=== PATIENT | female | born 1985 | race Caucasian/White ===

== ENCOUNTER 2023-11-08 11:27 | Emergency (ER) | payer OTHER, SELFPAY ==
[2023-11-08] VITALS (8 sets, daily range): BP systolic 123–157; BP diastolic 63–112
[2023-11-08] MEDS: THIAMINE INJECTION 100 MG IV (12:53)
[2023-11-08] MEDS: PROTONIX IV 40 MG IV (12:53)
[2023-11-08] MEDS: ATIVAN 1 MG IV (12:53)
[2023-11-08] MEDS: NSS 1000 IV (12:55)
[2023-11-08 13:09] LABS: % Basophils 0.5 % (0-2); % Eosinophils 0.3 % (0-6); % Immature Granulocytes 0.2 % (0-0.5); % Monocytes 6.5 % (1.7-9.3); % Neutrophils 84.5 % (42.2-75.2); Absolute Lymphocytes 0.5 10^3/uL (1.2-3.4); Absolute Monocytes 0.4 10^3/uL (0.1-0.6); Absolute Neutrophils 5.2 10^3/uL (1.4-6.5); Hematocrit 30.5 % (37.0-47.0); Hemoglobin 8.6 g/dL (12.0-16.0); Mean Corp Hgb Conc. 28.2 g/dL (33.0-37.0); Mean Corpuscular Hgb 16.3 pg (27.0-31.0); Mean Corpuscular Volume 57.8 fL (81.0-99.0); Nucleated Red Blood Cells % 0 %; Platelet Count 439 10^3/uL (130-400); Red Blood Cell Count 5.28 10^6/uL (4.20-5.40); Red Cell Dist. Width 20.8 % (11.5-14.5); White Blood Cell Count 6.1 10^3/uL (4.8-10.8)
[2023-11-08 13:18] LABS: PT 14.1 Sec (11.4-14.6)
[2023-11-08 13:19] LABS: APTT 27.1 Sec (23.4-35.0)
[2023-11-08 13:30] LABS: HCG, Serum Qualitative Screen Negative
[2023-11-08 13:32] LABS: ALT (SGPT) 18 U/L (0-35); AST (SGOT) 31 U/L (14-36); Albumin 4.3 g/dl (3.5-5.0); Alkaline Phosphatase 157 U/L (38-126); Blood Urea Nitrogen 7 mg/dl (7-17); Calcium 8.9 mg/dl (8.4-10.2); Carbon Dioxide 22 mmol/L (22-30); Chloride 102 mmol/L (98-107); Glucose 100 mg/dl (70-99); Lipase 34 U/L (23-300); Potassium 3.8 mmol/L (3.5-5.1); Sodium 131 mmol/L (135-145); Total Bilirubin 2.4 mg/dl (0.2-1.3); Total Protein 7.5 g/dl (6.3-8.2); eGFR > 60.00
[2023-11-08 13:57] LABS: Anisocytosis 1+; Hypochromasia 1+; Microcytosis 1+; Normal RBC Morphology No
[2023-11-08 13:58] LABS: Ovalocytes 1+; Stomatocytes 1+; Target Cells 1+; Tear Drop Red Blood Cells 1+
--- NOTE | 2023-11-08 14:40 | ED.GENMED ---
History of Present Illness
General
Chief Complaint: Anxiety
Source: patient
Exam Limitations: none
Time Seen by Provider: 11/08/23 11:44
Nursing documentation reviewed up to this point in time: agreed with
Travel History
Have you had any contact with someone who has COVID-19?: No
Do you have any symptoms of coronavirus? Fever > 100 degrees, chills, cough, shortness of breath, sore throat, loss of taste or smell, muscle aches, or headache?: No
History of Present Illness
History of Present Illness:
pt i s a 38 y/o F with h/o gastric bypass, bleeding PUD, anemia, alcohol use, anxieyt, bipolar
says initially that she has been drining alcohol (whiskey) for 2 days, binge drinking because she is depressed about the anniversary of her mother's coming up
today she woke up not feeling well, was fatigued, shaky, anxious, lightheadedness
she took a sip of alcohol this morning because she was worried maybe arnaldo twould help
prior to a few days ago, she denies using alcohol this frequently and not daily
pt has had chronic anemia, but hasn't noticed any black stool. she is noncompliant with her iron. sh also was noncompliant with her omeprazole which she takes because of her peptic ulcer disease. Patient says she really has not been Taking care of
herself recently. She lives with family members and they are not aware of her alcohol problem.
She denies vomiting, fever, chills, chest pain, shortness of breath, diarrhea or black stool. Ultimately after
Speaking with her several times she ended up admitting that she has been binge drinking for at least a week, this very well may be even longer. Patient says she does not want to drink again.
Past History
Past History
ED Past Medical History: Asthma, COPD, Psychiatric (Anxiety, bipolar, depression), Other (Peptic ulcer) and Other (Anemia)
ED Past Surgical History: Other (Gastric bypass)
Social History
Tobacco: Smoker
Alcohol: Binge drinker
Drug: None
Personal: Single
Living: with family
Review of Systems
Review of Systems
Allergies reviewed?: Yes
All Other Systems: Not applicable
Phy Exam
Physical Exam
Physical Exam:
GENERAL: Alert mildly anxious
EYE: pupils equal and reactive
NECK: Supple
ENT: o/p clr, mmm.
CARDIAC: tachycardia, no edema
LUNGS: Clear breath sounds bilaterally, no acute respiratory distress, no wheezes/rales/rhonchi
ABDOMEN: Soft, without focal tenderness, no r/g, no cvat, normal bowel sounds
rectal: heme neg light brown stool
NEUROLOGICAL: Alert and oriented, no focal neuro deficits,
SKIN: Warm and dry, skin intact.
MUSCULOSKELETAL: No edema, well perfused. neg deborah's sign
PSYCH: anxious, no SI, no hallucinations
Course
Orders/Labs/Results
Orders:
Orders
11/08/23 11:34
Electrocardiogram (*1) Urgent
Reason for Study: Chest Pain
EKG- Treatment ONCE
11/08/23 12:09
IV Insert/Care/Rem.- Treatment PRN
0.9% Sodium Chloride 1000 ml [Nss] 1,000 ml IV BOLUS
Lorazepam [Ativan] 1 mg IV NOW STA
Pantoprazole [Protonix IV] 40 mg IV NOW STA
Thiamine Injection 100 mg IV NOW STA
11/08/23 12:10
Test Result ONCE
11/08/23 12:51
Complete Blood Count/With Diff Urgent
Comprehensive Metabolic Panel Urgent
HCG, Serum Qualitative Screen Urgent
Lipase Urgent
PTT Urgent
Prothrombin Time Urgent
Abnormal Lab Results
11/08/23
12:51
Hgb 8.6 L g/dL
(12.0-16.0)
Hct 30.5 L %
(37.0-47.0)
MCV 57.8 L fL
(81.0-99.0)
MCH 16.3 L pg
(27.0-31.0)
MCHC 28.2 L g/dL
(33.0-37.0)
RDW 20.8 H %
(11.5-14.5)
Plt Count 439 H 10^3/uL
(130-400)
Absolute Lymphs (auto) 0.5 L 10^3/uL
(1.2-3.4)
Neutrophils % 84.5 H %
(42.2-75.2)
Lymphocytes % 8.0 L %
(20.5-51.1)
Sodium 131 L mmol/L
(135-145)
Glucose 100 H mg/dl
(70-99)
Total Bilirubin 2.4 H mg/dl
(0.2-1.3)
Alkaline Phosphatase 157 H U/L
(38-126)
11/08/23 12:51
11/08/23 12:51
Vital Signs
Initial and Last Documented VS:
Initial Vital Signs
Temp Pulse Resp BP Pulse Ox
97.5 F 110 18 157/112 99
11/08/23 11:30 11/08/23 11:30 11/08/23 11:30 11/08/23 11:30 11/08/23 11:30
Last Documented Vital Signs
Temp Pulse Resp BP Pulse Ox
97.5 F 83 15 149/92 99
11/08/23 11:30 11/08/23 13:01 11/08/23 13:01 11/08/23 13:00 11/08/23 13:01
MDM/Problems Addressed
Differential Diagnosis Includes:
Anxiety, alcohol withdrawal, anemia, vitamin deficiency
MDM/Problems Addressed:
38-year-old female with history of anxiety and bipolar disorder, peptic ulcer disease, status post gastric bypass here for feeling very anxious, fatigued, lightheaded. She says she just binge drink, initially told me only for 2 days but then
admitted to drinking for a week, 1 small bottle of whiskey a day. Patient felt shaky this morning so she did sip on some alcohol which did not help her anxiety. She thinks her anxiety is related to feeling worried that she went down this path of
using alcohol to treat her depression. She is not suicidal. Patient is asking for something for anxiety. She has never had an alcohol withdrawal seizure. Patient says she prior to 1 week ago was not drinking alcohol at all. She has mild
tachycardia and hypertension and is slightly shaky, her CIWA was 8 on arrival. Patient was given Ativan and her symptoms resolved. Patient's labs show a hemoglobin of 8, I do not have an old one. I asked the patient what her baseline is that she
could not tell me. She has heme-negative brown stool, she was given some Protonix. I will write her for iron and Colace. This point she has been medically cleared, I do not truly suspect that she is in alcohol withdrawal but [facility] The [facility] member talk to her and discussed inpatient or outpatient resources for detox, patient prefers outpatient. She still offer some hesitancy about going home. I discussed that if she thinks that she needs to be inpatient we
can work on that but patient said she does not ultimately want to go to inpatient detox. I have a low suspicion that she will have an alcohol withdrawal seizure or any complications however I will give her 2 tablets of Ativan 1 mg and with the
instructions that if she gets worse with symptoms and the Ativan does not help she should return to the hospital. It would be unlikely for the patient to truly have alcohol withdrawal after only drinking for 1 week, but I am concerned that maybe
she is not being as forthcoming with the details
*Critical Care Note
Total Time (30-74mins, 75-104mins- exclusive of procedures): Not Applicable
ED Attending Note
-
Portions of this chart may have been created with voice recognition software.� Occasional wrong word or��sound alike� substitutions may have occurred due to the inherent limitations of voice recognition software.
Discharge Plan
Departure
Patient Disposition: Home (Routine Discharge)
Date of Disposition: 11/08/23
Time of Disposition: 16:22
Patient with high blood pressure during this ER visit?: No
Condition: Fair
Covid-19: Not Applicable
Discharge Problem:
Anemia, Anxiety, Alcohol abuse
Instructions: Anemia Caused by Low Iron, Adult (DC), Anxiety, Adult (DC), Alcohol Use Disorder (DC)
Prescriptions:
New
lorazepam [Ativan] 1 mg tablet
1 mg PO BID PRN (Reason: anxiety) Qty: 2 0RF
docusate sodium [Colace] 100 mg capsule
100 mg PO BID Qty: 20 0RF
ferrous sulfate 325 mg (65 mg iron) tablet
325 mg PO BID Qty: 60 0RF
Referrals:
Jace Rodriguez MD [Family Provider] - Follow up in 2-3 days
Activity Restrictions/Additional Instructions:
You are anemic, your hemoglobin is 8.6 today. You had no signs of bleeding in your stomach. Take iron 2-3 times a day and a stool softener like Colace twice a day and have this number repeated. Please avoid drinking alcohol as heavily as you have
been. If you feel quite anxious you can try the 1 tablet of Ativan as prescribed. Please follow-up for alcohol addiction. Return for severe worsening of symptoms, suicidal thoughts or any concerns
Interventions
Interventions:
*Risk Screen - Suicide Last Done: 11/08/23 11:30
*Neglect/Abuse Screening Last Done: 11/08/23 11:30
*ED COVID-19 Vaccine History Last Done: 11/08/23 11:30
== END 2023-11-08 17:37 | disposition home or self-care (01) ==
LOC: EMR 11:27
PROVIDERS: Physician Assistant; EMERGENCY PHYSICIAN Emergency Medicine; FAMILY PHYSICIAN Internal Medicine
DX: F10.10 Alcohol abuse, uncomplicated (principal); R42 Dizziness and giddiness; R00.0 Tachycardia, unspecified; D64.9 Anemia, unspecified; F32.A Depression, unspecified; F41.9 Anxiety disorder, unspecified; Z91.148 Patient's other noncompliance with medication regimen for other reason; Z63.4 Disappearance and death of family member; J45.909 Unspecified asthma, uncomplicated; F31.9 Bipolar disorder, unspecified; F17.200 Nicotine dependence, unspecified, uncomplicated; Z98.84 Bariatric surgery status; Z87.11 Personal history of peptic ulcer disease
CPT/HCPCS: 99284; 96374; 96375 ×2; 96361; 80053; 83690; 84703; 85025; 85610; 85730; 93005

== ENCOUNTER 2023-11-17 09:39 | Emergency (ER) | payer OTHER, SELFPAY ==
[2023-11-17 09:54] VITALS: BP 152/103
--- NOTE | 2023-11-17 10:18 | ED.GENMED ---
History of Present Illness
General
Chief Complaint: Abdominal Symptoms
Time Seen by Provider: 11/17/23 10:06
Travel History
Have you had any contact with someone who has COVID-19?: No
Do you have any symptoms of coronavirus? Fever > 100 degrees, chills, cough, shortness of breath, sore throat, loss of taste or smell, muscle aches, or headache?: No
History of Present Illness
History of Present Illness:
HPI: Patient is been having nausea and vomiting and feels dehydrated. She also has a history of alcohol use disorder. She last drank alcohol yesterday describing she has had 2 shots. She tells me that when she was here a about a week ago, [facility]
was contacted however she never received any information.
EXAM:
GENERAL: Well appearing in mild distress
HEENT: Moist oral mucosa, edentulous
CARDIOVASCULAR: No murmurs, normal heart rate and rhythm, No chest wall tenderness
PULMONARY: No respiratory distress, breath sounds are clear and equal
ABDOMEN: Soft with no peritoneal signs, no tenderness
NEUROLOGIC: Excellent strength all extremities, no coordination deficits
PSYCHIATRIC: Appropriate mental status, normal insight and judgement
EXTREMITIES: Nontender, no edema, moves all extremities equally
SKIN: No rash, no lesions
ED COURSE:
10:30 AM: I initially evaluated patient
NUMBER AND COMPLEXITY OF PROBLEMS ADDRESSED AT THE ENCOUNTER
� Chronic conditions affecting care: Former smoker, asthma/COPD, anxiety, bipolar depression, history of gastric bypass
� Acute Exacerbation and/or Progression of Chronic Illness: This is an acute problem
� Differential Diagnosis includes: Alcohol withdrawal, GERD/gastritis
AMOUNT AND/OR COMPLEXITY OF DATA TO BE REVIEWED AND ANALYZED
� I performed an independent evaluation of and my interpretation is:
EKG: Sinus 76, normal axis, QRS and T wave are both negative in V3
CT:
X-rays:
Laboratory Studies: Hemoglobin similar to 10 days ago, mild hyponatremia and hypokalemia noted, alcohol not detected, troponin negative
Other:
� Review of other/old records: I reviewed the labs from about 10 days ago that showed a hemoglobin of 8.6 reportedly she had heme-negative stool at that time
� Clinical information was obtained by an independent historian: None needed
� Prescriptions/Medications Considered but not given:
� Further testing considered but not performed:
RISK OF COMPLICATIONS AND/OR MORBIDITY OR MORTALITY OF PATIENT MANAGEMENT
� Social determinants of health affecting care: Lives at home, drinks alcohol
� Discussion with other providers:
� Escalation of care including admission/observation vs risk of discharge considered: The patient's initial CIWA score was 20 however her current heart rate is normal and her mental status is appropriate. She will be given IV
fluids as well as benzos. She did have a ride here. At 10:40 AM, I did ask [facility] to evaluate the patient in person. I spoke to DAYANA at 11:45 AM�the patient was given resources�the patient refused to go to an inpatient facility. Anemia noted
but near baseline. On reassessment at 12:39 PM, the patient appears improved. Encouraged her to no longer drink alcohol and will give a short course of benzos to help with symptoms. I have also contacted GI front office to arrange close
follow-up. The patient still is not tachycardic and has appropriate mental status. No clear indication for medical admission for alcohol withdrawal at this time.
Past History
Past History
ED Past Medical History: Asthma, COPD, Psychiatric (Anxiety, bipolar, depression), Other (Peptic ulcer) and Other (Anemia)
ED Past Surgical History: Other (Gastric bypass)
Social History
Tobacco: Smoker
Alcohol: Binge drinker
Drug: None
Personal: Single
Living: with family
Phy Exam
Physical Exam
Physical Exam:
See HPI
Course
Orders/Labs/Results
Orders:
Orders
11/17/23 10:20
Test Result ONCE
11/17/23 10:21
0.9% Sodium Chloride 1000 ml [Nss] 1,000 ml IV BOLUS
11/17/23 10:34
Lorazepam [Ativan] 1 mg IV NOW STA
Ondansetron Injectable [Zofran] 4 mg IV NOW STA
11/17/23 10:43
Alcohol Urgent
Complete Blood Count/With Diff Urgent
Comprehensive Metabolic Panel Urgent
HCG, Serum Qualitative Screen Urgent
11/17/23 10:53
Electrocardiogram (*1) Urgent
Reason for Study: Chest Pain
EKG- Treatment ONCE
11/17/23 11:03
Troponin I Urgent
Abnormal Lab Results
11/17/23
10:43
Hgb 8.5 L g/dL
(12.0-16.0)
Hct 30.3 L %
(37.0-47.0)
MCV 59.3 L fL
(81.0-99.0)
MCH 16.6 L pg
(27.0-31.0)
MCHC 28.1 L g/dL
(33.0-37.0)
RDW 22.6 H %
(11.5-14.5)
Absolute Lymphs (auto) 0.5 L 10^3/uL
(1.2-3.4)
Neutrophils % 81.8 H %
(42.2-75.2)
Lymphocytes % 7.6 L %
(20.5-51.1)
Monocytes % 9.5 H %
(1.7-9.3)
Sodium 132 L mmol/L
(135-145)
Potassium 3.4 L mmol/L
(3.5-5.1)
BUN 6 L mg/dl
(7-17)
Total Bilirubin 3.0 H mg/dl
(0.2-1.3)
Alkaline Phosphatase 150 H U/L
(38126)
11/17/23 10:43
11/17/23 10:43
Vital Signs
Initial and Last Documented VS:
Initial Vital Signs
Temp Pulse BP Pulse Ox
98.9 F 105 152/103 98
11/17/23 09:54 11/17/23 09:54 11/17/23 09:54 11/17/23 09:54
Last Documented Vital Signs
Temp Pulse Resp BP Pulse Ox
98.9 F 76 12 139/91 97
11/17/23 09:54 11/17/23 12:15 11/17/23 12:15 11/17/23 12:00 11/17/23 12:15
*Critical Care Note
Total Time (30-74mins, 75-104mins- exclusive of procedures): Not Applicable
ED Attending Note
-
Portions of this chart may have been created with voice recognition software.� Occasional wrong word or��sound alike� substitutions may have occurred due to the inherent limitations of voice recognition software.
Discharge Plan
Departure
Patient Disposition: Home (Routine Discharge)
Date of Disposition: 11/17/23
Time of Disposition: 12:41
Patient with high blood pressure during this ER visit?: Yes
Discharge Problem:
Alcohol withdrawal
Instructions: Alcohol Withdrawal (DC)
Prescriptions:
New
ondansetron HCl 4 mg tablet
4 mg PO DAILY PRN (Reason: nausea and vomiting) Qty: 14 0RF
lorazepam 1 mg tablet
1 mg PO BID PRN (Reason: alcohol withdrawal) Qty: 5 0RF
No Action
lorazepam [Ativan] 1 mg tablet
1 mg PO BID PRN (Reason: anxiety) Qty: 2 0RF
docusate sodium [Colace] 100 mg capsule
100 mg PO BID Qty: 20 0RF
ferrous sulfate 325 mg (65 mg iron) tablet
325 mg PO BID Qty: 60 0RF
Referrals:
Ileana Srivastava MD [Active] - Follow up in 2-3 days
UNKNOWN - PT DOES,NOT KNOW [Family Provider] -
Activity Restrictions/Additional Instructions:
Continue omeprazole as outpatient. I sent a prescription for nausea medicine as well as for further benzodiazepines to your pharmacy. Limit the use of benzos due to high addiction potential. You cannot drink alcohol if you take Ativan/lorazepam.
This should only be used to help decrease the alcohol withdrawal symptoms. Follow-up as recommended by [employer]. I also gave contact information for q[facility] tester and somebody from their office should be contacting you.
Interventions
Interventions:
*Risk Screen - Suicide Last Done: 11/17/23 10:34
*General Assessment Last Done: 11/17/23 10:34
*Neglect/Abuse Screening Last Done: 11/17/23 10:34
ED- Fall Risk Assessment Last Done: 11/17/23 11:12
*ED COVID-19 Vaccine History Last Done: 11/17/23 09:56
CA-Smhjot-Nblnctkcgy Assessment Last Done: 11/17/23 10:57
[2023-11-17 10:33] VITALS: BMI 21.7
[2023-11-17] MEDS: NSS 1000 IV (10:47)
[2023-11-17] MEDS: ATIVAN 1 MG IV (10:47)
[2023-11-17] MEDS: ZOFRAN 4 MG IV (10:48)
[2023-11-17 10:52] LABS: % Basophils 0.3 % (0-2); % Eosinophils 0.3 % (0-6); % Immature Granulocytes 0.5 % (0-0.5); % Lymphocytes 7.6 % (20.5-51.1); % Monocytes 9.5 % (1.7-9.3); % Neutrophils 81.8 % (42.2-75.2); Absolute Lymphocytes 0.5 10^3/uL (1.2-3.4); Absolute Monocytes 0.6 10^3/uL (0.1-0.6); Absolute Neutrophils 5.2 10^3/uL (1.4-6.5); Hematocrit 30.3 % (37.0-47.0); Hemoglobin 8.5 g/dL (12.0-16.0); Mean Corp Hgb Conc. 28.1 g/dL (33.0-37.0); Mean Corpuscular Hgb 16.6 pg (27.0-31.0); Mean Corpuscular Volume 59.3 fL (81.0-99.0); Nucleated Red Blood Cells % 0 %; Red Blood Cell Count 5.11 10^6/uL (4.20-5.40); Red Cell Dist. Width 22.6 % (11.5-14.5); White Blood Cell Count 6.4 10^3/uL (4.8-10.8)
[2023-11-17 11:02] LABS: HCG, Serum Qualitative Screen Negative
[2023-11-17 11:05] VITALS: BP 142/97
[2023-11-17 11:05] LABS: ALT (SGPT) 22 U/L (0-35); AST (SGOT) 35 U/L (14-36); Albumin 4.4 g/dl (3.5-5.0); Alkaline Phosphatase 150 U/L (38-126); Blood Urea Nitrogen 6 mg/dl (7-17); Calcium 8.7 mg/dl (8.4-10.2); Carbon Dioxide 24 mmol/L (22-30); Chloride 100 mmol/L (98-107); Estimated Creatinine Clearance > 125 ml/min; Glucose 92 mg/dl (70-99); Potassium 3.4 mmol/L (3.5-5.1); Sodium 132 mmol/L (135-145); Total Protein 7.4 g/dl (6.3-8.2); eGFR > 60.00
[2023-11-17 11:06] LABS: Alcohol None Detected
[2023-11-17 11:45] LABS: Troponin I < 0.012 ng/ml
[2023-11-17 12:00] VITALS: BP 139/91
[2023-11-17 12:42] LABS: Anisocytosis 2+; Microcytosis 1+; Normal RBC Morphology No
[2023-11-17 12:43] LABS: Hypochromasia 2+; Ovalocytes Slight; Poikilocytosis Slight; Polychromasia Slight
== END 2023-11-17 12:50 | disposition home or self-care (01) ==
LOC: EMR 09:39
PROVIDERS: EMERGENCY PHYSICIAN Emergency Medicine
DX: F10.939 Alcohol use, unspecified with withdrawal, unspecified (principal); F17.200 Nicotine dependence, unspecified, uncomplicated; R03.0 Elevated blood-pressure reading, without diagnosis of hypertension
CPT/HCPCS: 99284; 96374; 96375; 96361; 80053; 82077; 84484; 84703; 85025; 93005

== ENCOUNTER 2023-11-23 21:30 | Emergency (ER) | payer OTHER, SELFPAY ==
[2023-11-23 21:32] VITALS: BP 134/94
[2023-11-23 22:17] LABS: % Basophils 1.6 % (0-2); % Eosinophils 2.1 % (0-6); % Immature Granulocytes 0.3 % (0-0.5); % Lymphocytes 21.5 % (20.5-51.1); % Monocytes 8.8 % (1.7-9.3); % Neutrophils 65.7 % (42.2-75.2); Absolute Basophils 0.1 10^3/uL (0-0.2); Absolute Eosinophils 0.1 10^3/uL (0-0.7); Absolute Lymphocytes 0.8 10^3/uL (1.2-3.4); Absolute Monocytes 0.3 10^3/uL (0.1-0.6); Absolute Neutrophils 2.5 10^3/uL (1.4-6.5); Hematocrit 33.7 % (37.0-47.0); Hemoglobin 9.4 g/dL (12.0-16.0); Mean Corp Hgb Conc. 27.9 g/dL (33.0-37.0); Mean Corpuscular Hgb 16.7 pg (27.0-31.0); Mean Platelet Volume 8.9 fL (7.4-10.4); Nucleated Red Blood Cells % 0 %; Platelet Count 253 10^3/uL (130-400); Red Blood Cell Count 5.62 10^6/uL (4.20-5.40); Red Cell Dist. Width 23.4 % (11.5-14.5); White Blood Cell Count 3.8 10^3/uL (4.8-10.8)
[2023-11-23 22:29] LABS: ALT (SGPT) 26 U/L (0-35); AST (SGOT) 53 U/L (14-36); Albumin 4.3 g/dl (3.5-5.0); Alcohol 285 mg/dl; Alkaline Phosphatase 122 U/L (38-126); Blood Urea Nitrogen 11 mg/dl (7-17); Calcium 8.4 mg/dl (8.4-10.2); Carbon Dioxide 24 mmol/L (22-30); Chloride 97 mmol/L (98-107); Glucose 138 mg/dl (70-99); Potassium 3.4 mmol/L (3.5-5.1); Sodium 133 mmol/L (135-145); Total Bilirubin 1.5 mg/dl (0.2-1.3); Total Protein 7.5 g/dl (6.3-8.2); eGFR > 60.00
--- NOTE | 2023-11-23 23:22 | ED.GENMED ---
History of Present Illness
<LIANNA Chi - Last Filed: 11/25/23 00:01>
General
Chief Complaint: Alcohol Problem
Source: patient
Exam Limitations: none
Time Seen by Provider: 11/23/23 23:04
Nursing documentation reviewed up to this point in time: agreed with
Travel History
Have you had any contact with someone who has COVID-19?: No
Do you have any symptoms of coronavirus? Fever > 100 degrees, chills, cough, shortness of breath, sore throat, loss of taste or smell, muscle aches, or headache?: No
History of Present Illness
History of Present Illness:
Patient is a 38-year-old female with a history of alcohol abuse who presents to the ER because she wants alcohol detox.
She reports she drinks at least a bowel scale a day. She last drank around 8 PM. She has been heavily drinking more than normal since November 08 which was the anniversary of her mom's . She admits to being previously here but refusing
inpatient treatment but does want inpatient treatment now. She denies any suicidal homicidal thoughts.
She does not take any medicine every day. She admits to being chronically anemic and reports she had a gastric bypass surgery years ago. No prior history of GI bleed. Denies any dark or black stools.
Past History
<LIANNA Chi - Last Filed: 11/25/23 00:01>
Past History
ED Past Medical History: Asthma, COPD, Psychiatric (Anxiety, bipolar, depression), Other (Peptic ulcer) and Other (Anemia)
ED Past Surgical History: Other (Gastric bypass)
Social History
Tobacco: Smoker
Alcohol: Binge drinker
Drug: None
Personal: Single
Living: with family
Review of Systems
<LIANNA Chi - Last Filed: 11/25/23 00:01>
Review of Systems
Allergies reviewed?: Yes
All Other Systems: ROS reviewed and negative except as documented in HPI and ROS
Constitutional: Reports no symptoms; Denies fever, fatigue or chills
Respiratory: Reports no symptoms
Cardiac: Reports no symptoms
ABD/GI: Reports no symptoms
: Reports no symptoms
Musculoskeletal: Reports no symptoms
Skin: Reports no symptoms
Neurological: Reports no symptoms
Psychiatric: Reports no symptoms; Denies suicidal or hallucinations
Phy Exam
<LIANNA Chi - Last Filed: 11/25/23 00:01>
General Physical Exam
General Presentation: no apparent distress
General age: appears stated age
General Skin: warm and dry
General Habitus: normal
General Mental: alert
General Hydration: appears well hydrated
Cardiovascular Exam
Cardiovascular Exam: regular rate/rhythm, no murmur and normal peripheral pulses
Pulmonary Exam
Pulmonary Exam: lungs clear and no respiratory distress
Neurological Exam
Neurological Exam: alert and oriented x3
Musculoskeletal Exam
Musculoskeletal Exam: full ROM
Skin Exam
Skin Exam: normal color and warm/dry
Psychiatric Exam
Psychiatric Exam: normal mood/affect
Scores
<LIANNA Chi - Last Filed: 11/25/23 00:01>
Withdrawal Assessment of Alcohol
Withdrawal Assessment Completed?: Yes
Nausea and Vomiting: Intermittent nausea with dry heaves
Tactile Disturbances: None
Tremor: Moderate, with patient's arms extended
Auditory Disturbances: Not present
Paroxysmal Sweats: No sweat visible
Visual Disturbances: Not present
Anxiety: No anxiety, at ease
Headache, Fullness in Head: Not present
Agitation: Normal activity
Orientation and clouding of sensorium: Oriented and can do serial additions
Total CIWA Score: 8
Alcohol Withdrawal Medication Recommendation: Equal to MSAS Score 5-7. Lorazepam 1mg IV or PO NOW & re-assess q2hrs
<Sai Crawford DO - Last Filed: 11/24/23 07:31>
Withdrawal Assessment of Alcohol
Total CIWA Score: 8
Alcohol Withdrawal Medication Recommendation: Equal to MSAS Score 5-7. Lorazepam 1mg IV or PO NOW & re-assess q2hrs
Course
<LIANNA Chi - Last Filed: 11/25/23 00:01>
Orders/Labs/Results
Orders:
Orders
11/23/23 22:08
Alcohol Urgent
CMP [Comprehensive Metabolic Panel] Urgent
Complete Blood Count/With Diff Urgent
11/23/23 23:32
Electrocardiogram (*1) Stat
Reason for Study: Abdominal Pain
EKG- Treatment ONCE
0.9% Sodium Chloride 1000 ml [Nss] 1,000 ml IV BOLUS
11/24/23 03:01
Alcohol Urgent
11/24/23 03:02
Vital Signs- Treatment ONCE
Frequency: Once
11/24/23 03:03
Lorazepam [Ativan] 1 mg PO NOW STA
11/24/23 03:05
Ondansetron Orally Disint [Zofran Odt (Orally Disintegrating)] 4 mg .ROUTE .STK-MED ONE
Ondansetron Orally Disint [Zofran Odt (Orally Disintegrating)] 4 mg PO NOW STA
11/24/23 08:54
Lorazepam [Ativan] 1 mg PO NOW STA
Abnormal Lab Results
11/23/23
22:08
WBC 3.8 L 10^3/uL
(4.8-10.8)
RBC 5.62 H 10^6/uL
(4.20-5.40)
Hgb 9.4 L g/dL
(12.0-16.0)
Hct 33.7 L %
(37.0-47.0)
MCV 60.0 L fL
(81.0-99.0)
MCH 16.7 L pg
(27.0-31.0)
MCHC 27.9 L g/dL
(33.0-37.0)
RDW 23.4 H %
(11.5-14.5)
Absolute Lymphs (auto) 0.8 L 10^3/uL
(1.2-3.4)
Sodium 133 L mmol/L
(135-145)
Potassium 3.4 L mmol/L
(3.5-5.1)
Chloride 97 L mmol/L
(98-107)
Glucose 138 H mg/dl
(70-99)
Total Bilirubin 1.5 H mg/dl
(0.2-1.3)
AST 53 H U/L
(14-36)
11/23/23 22:08
11/23/23 22:08
Vital Signs
Initial and Last Documented VS:
Initial Vital Signs
Temp Pulse Resp BP Pulse Ox
98.4 F 148 24 134/94 95
11/23/23 21:32 11/23/23 21:32 11/23/23 21:32 11/23/23 21:32 11/23/23 21:32
Last Documented Vital Signs
Temp Pulse Resp BP Pulse Ox
98.6 F 93 20 150/97 96
11/24/23 10:31 11/24/23 10:31 11/24/23 10:31 11/24/23 10:31 11/24/23 10:31
Danishalt;Sai Crawford, DO - Last Filed: 11/24/23 07:31>
Orders/Labs/Results
Orders:
Orders
11/23/23 22:08
Alcohol Urgent
CMP [Comprehensive Metabolic Panel] Urgent
Complete Blood Count/With Diff Urgent
11/23/23 23:32
Electrocardiogram (*1) Stat
Reason for Study: Abdominal Pain
EKG- Treatment ONCE
0.9% Sodium Chloride 1000 ml [Nss] 1,000 ml IV BOLUS
11/24/23 03:01
Alcohol Urgent
11/24/23 03:02
Vital Signs- Treatment ONCE
Frequency: Once
11/24/23 03:03
Lorazepam [Ativan] 1 mg PO NOW STA
11/24/23 03:05
Ondansetron Orally Disint [Zofran Odt (Orally Disintegrating)] 4 mg .ROUTE .STK-MED ONE
Ondansetron Orally Disint [Zofran Odt (Orally Disintegrating)] 4 mg PO NOW STA
11/24/23 08:54
Lorazepam [Ativan] 1 mg PO NOW STA
Abnormal Lab Results
11/23/23
22:08
WBC 3.8 L 10^3/uL
(4.8-10.8)
RBC 5.62 H 10^6/uL
(4.20-5.40)
Hgb 9.4 L g/dL
(12.0-16.0)
Hct 33.7 L %
(37.0-47.0)
MCV 60.0 L fL
(81.0-99.0)
MCH 16.7 L pg
(27.0-31.0)
MCHC 27.9 L g/dL
(33.0-37.0)
RDW 23.4 H %
(11.5-14.5)
Absolute Lymphs (auto) 0.8 L 10^3/uL
(1.2-3.4)
Sodium 133 L mmol/L
(135-145)
Potassium 3.4 L mmol/L
(3.5-5.1)
Chloride 97 L mmol/L
(98-107)
Glucose 138 H mg/dl
(70-99)
Total Bilirubin 1.5 H mg/dl
(0.2-1.3)
AST 53 H U/L
(14-36)
11/23/23 22:08
11/23/23 22:08
Vital Signs
Initial and Last Documented VS:
Initial Vital Signs
Temp Pulse Resp BP Pulse Ox
98.4 F 148 24 134/94 95
11/23/23 21:32 11/23/23 21:32 11/23/23 21:32 11/23/23 21:32 11/23/23 21:32
Last Documented Vital Signs
Temp Pulse Resp BP Pulse Ox
98.6 F 93 20 150/97 96
11/24/23 10:31 11/24/23 10:31 11/24/23 10:31 11/24/23 10:31 11/24/23 10:31
<LIANNA Chi - Last Filed: 11/25/23 00:01>
MDM/Problems Addressed
Differential Diagnosis Includes:
Not limited to alcohol abuse, withdrawal
MDM/Problems Addressed:
Patient is a 38-year-old female who presented for detox. Patient last drank 2 hours prior to arrival. Initial heart rate in triage was 148 however repeat EKG after my exam with a heart rate of 80.
Patient nontremulous nondiaphoretic in no acute distress no auditory or tactile hallucinations.
No suicidal homicidal thoughts requesting detox
0307: Back in to reassess patient. Patient is now feeling nauseous intermittent dry heaving slightly shaky remains nontachycardic normotensive. No hallucinations not diaphoretic. Will give Zofran ODT and Ativan. Patient to be accepted to [place]
[facility]
0333: Alcohol level repeat 156. Patient calm improved. I spoke to [place] however staff at [facility] not able to admit patient until 7 AM shift. Patient will remain here in the ER until then. Will continue to monitor. ED
Attedning aware.
<LIANNA Chi - Last Filed: 11/25/23 00:01>
*Critical Care Note
Total Time (30-74mins, 75-104mins- exclusive of procedures): Not Applicable
ED Attending Note
<LIANNA Chi - Last Filed: 11/25/23 00:01>
-
Portions of this chart may have been created with voice recognition software.� Occasional wrong word or��sound alike� substitutions may have occurred due to the inherent limitations of voice recognition software.
Discharge Plan
Departure
Patient Disposition: Acute Rehab Facility
Date of Disposition: 11/24/23
Time of Disposition: 03:53
Patient with high blood pressure during this ER visit?: Yes
Condition: Fair
Covid-19: Not Applicable
Discharge Problem:
Alcohol abuse
Prescriptions:
No Action
albuterol sulfate 90 mcg/actuation Hfa Aerosol Inhaler
2 puff INHALATION Q6H PRN (Reason: wheezing)
Referrals:
UNKNOWN - PT NOT,INTERVIEWE [Family Provider] -
Interventions
Interventions:
*Risk Screen - Suicide Last Done: 11/23/23 21:32
*General Assessment Last Done: 11/24/23 03:25
*Neglect/Abuse Screening Last Done: 11/23/23 21:32
ED- Fall Risk Assessment Last Done: 11/24/23 04:04
*ED COVID-19 Vaccine History Last Done: 11/24/23 03:25
*Nursing Disposition Last Done: 11/24/23 10:31
ED- Neurological Assessment Last Done: 11/24/23 03:29
ED-Psychological Assessment Last Done: 11/24/23 00:08
Discharge Date and Time
Discharge Date/Time: 11/24/23 10:00
[2023-11-24] VITALS: BMI 21.5
[2023-11-24 00:08] VITALS: BP 133/95
[2023-11-24 01:00] VITALS: BP 126/88
[2023-11-24 03:00] VITALS: BP 122/93
[2023-11-24] MEDS: ZOFRAN ODT (ORALLY DISINTEGRATING) 4 MG PO (03:08)
[2023-11-24] MEDS: ATIVAN 1 MG PO ×2 (03:24→09:20)
[2023-11-24 03:29] LABS: Alcohol 156 mg/dl
--- NOTE | 2023-11-24 03:33 | EDRN ---
[facility]win [facility] [employer] PROFESSION[employer] spoke with [employer] rep and informed of repeat alcohol level = 156, working on transport.
[2023-11-24 04:00] VITALS: BP 127/92
[2023-11-24 08:48] VITALS: BP 150/97
[2023-11-24 10:31] VITALS: BP 150/97
== END 2023-11-24 10:00 ==
LOC: EMR 21:30
PROVIDERS: Emergency Medicine; Nurse Practitioner; EMERGENCY PHYSICIAN Emergency Medicine
DX: F10.10 Alcohol abuse, uncomplicated (principal); J45.909 Unspecified asthma, uncomplicated; J44.9 Chronic obstructive pulmonary disease, unspecified; F41.9 Anxiety disorder, unspecified; F31.9 Bipolar disorder, unspecified; Z87.11 Personal history of peptic ulcer disease; D64.9 Anemia, unspecified; F17.200 Nicotine dependence, unspecified, uncomplicated
CPT/HCPCS: 99283; 80053; 82077; 85025; 93005

== ENCOUNTER 2024-06-08 09:39 | Emergency (ER) | payer OTHER, SELFPAY ==
[2024-06-08 09:42] VITALS: BP 144/101
--- NOTE | 2024-06-08 10:21 | ED.GENMED ---
History of Present Illness
General
Chief Complaint: Back Pain
Source: patient
Exam Limitations: none
Time Seen by Provider: 06/08/24 10:04
Nursing documentation reviewed up to this point in time: agreed with
History of Present Illness
History of Present Illness:
pt is a 39 y/o F
h/o former alcohol abuse, PUD s/p surgery for ulcer perf, s/p gastric bypass
no longer drinks alcohol since november 2023
here after hurting bakc ysterday at work. 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 felt her back lock in place. massaged it, took tylenol
worked the rest of her shift
pain feels better than inintally but still present and woke up with LLQ pain to L flank
slight nausea and dyspepsia
no fever known, vomiting, diarrhea, constipation dysutira
lmp currently
no h/o kidney stones, divertic
Past History
Past History
ED Past Medical History: Asthma, COPD, Psychiatric (Anxiety, bipolar, depression), Other (Peptic ulcer) and Other (Anemia)
ED Past Surgical History: Other (Gastric bypass)
Social History
Tobacco: Smoker
Alcohol: Binge drinker
Drug: None
Personal: Single
Living: with family
Review of Systems
Review of Systems
Allergies reviewed?: Yes
All Other Systems: Not applicable
Phy Exam
Physical Exam
Physical Exam:
GENERAL: Alert, comfortable, ambulated
Neck: supple
CARDIAC: Regular rate and rhythm .
LUNGS: Clear breath sounds bilaterally, no acute respiratory distress, no wheezes/rales/rhonchi
ABDOMEN: Soft, normal bowel sounds, nondistended, no significant abd tenderness, no guarding, no rebound, neg lujan's
back: nontender midline
no cva tenderness
neg straight leg raise
NEUROLOGICAL: Alert and oriented, no focal neuro deficits
SKIN: Warm and dry, skin intact.
PSYCH: Normal and appropriate interaction.
Course
Orders/Labs/Results
Orders:
Orders
06/08/24 09:47
Electrocardiogram (*1) Urgent
Reason for Study: Hypertension, Benign
EKG- Treatment ONCE
06/08/24 10:17
CT Abd/pel Without Iv Or Oral Urgent
Comment:
Reason For Exam: L flank pain to back
Ketorolac [Toradol] 30 mg IV NOW STA
Test Result ONCE
06/08/24 10:22
Acetaminophen [Tylenol] 1,000 mg PO NOW STA
Famotidine [Pepcid] 20 mg IV NOW STA
Ketorolac [Toradol] 15 mg IV NOW STA
06/08/24 10:33
Complete Blood Count/With Diff Urgent
Comprehensive Metabolic Panel Urgent
HCG, Serum Qualitative Screen Urgent
Urinalysis Reflex To Culture Urgent
Date Specimen was Collected: 06/08/24
Time Specimen was Collected: 10:29
Urine Microscopic Reflex Cult Urgent
Urine Culture Urgent
SANDRA Source: U
Specimen Description:
Date Specimen was Collected: 06/08/24
Time Specimen was Collected: 10:29
Abnormal Lab Results
06/08/24
10:33
Hgb 8.1 L g/dL
(12.0-16.0)
Hct 29.7 L %
(37.0-47.0)
MCV 59.8 L fL
(81.0-99.0)
MCH 16.3 L pg
(27.0-31.0)
MCHC 27.3 L g/dL
(33.0-37.0)
RDW 19.5 H %
(11.5-14.5)
Eosinophils % 12.9 H %
(0-6)
Chloride 108 H mmol/L
(98-107)
Ur Occult Blood Reflex 4+ A
(Negative)
Leukocyte Esterase Rfl Trace A
(Negative)
Urine RBC 21-25 A /HPF
(0-2)
Urine Bacteria (Reflex) Moderate A
(Negative)
06/08/24 10:33
06/08/24 10:33
Vital Signs
Initial and Last Documented VS:
Initial Vital Signs
Temp Pulse Resp BP Pulse Ox
100.3 F 68 18 144/101 100
06/08/24 09:42 06/08/24 09:42 06/08/24 09:42 06/08/24 09:42 06/08/24 09:42
Last Documented Vital Signs
Temp Pulse Resp BP Pulse Ox
100.3 F 55 17 133/69 99
06/08/24 09:42 06/08/24 10:38 06/08/24 10:38 06/08/24 12:00 06/08/24 12:45
MDM/Problems Addressed
Differential Diagnosis Includes:
lumbar strain, flank pain,kidney stone,
MDM/Problems Addressed:
Back pain radiating to her left lower quadrant, the back pain started after setting a child down at work yesterday and she felt a spasm and difficulty ranging her back. It was nonradiating at the time but then this morning started having some left
lower quadrant pain. She has had some nausea. Patient previously had alcohol addiction but she no longer drinks. There is no red flag symptoms with a normal neurovascular exam, normal strength, no incontinence. She did have some left lower
quadrant and left flank tenderness. Borderline temperature on arrival. White count normal, creatinine normal, urine 4+ blood but she is on her menstrual cycle with RBCs and moderate bacteria but no whites and no leuks. She is not having any
urinary tract infection symptoms. I do suspect this is MSK pain
steroids, tramadol short course muscle relaxants
f/u pcpllumb
*Critical Care Note
Total Time (30-74mins, 75-104mins- exclusive of procedures): Not Applicable
ED Attending Note
-
Portions of this chart may have been created with voice recognition software.� Occasional wrong word or��sound alike� substitutions may have occurred due to the inherent limitations of voice recognition software.
Discharge Plan
Departure
Patient Disposition: Home (Routine Discharge)
Date of Disposition: 06/08/24
Time of Disposition: 12:38
Patient with high blood pressure during this ER visit?: No
Condition: Fair
Covid-19: Not Applicable
Discharge Problem:
Anemia, Acute lumbar back pain
Instructions: Low Back Pain (DC)
Prescriptions:
New
cyclobenzaprine 5 mg tablet
5 mg PO HS PRN (Reason: muscle spasm) Qty: 10 0RF
tramadol 50 mg tablet
50 mg PO Q8H PRN (Reason: Pain) Qty: 10 0RF
ferrous sulfate 325 mg (65 mg iron) tablet
325 mg PO DAILY Qty: 30 0RF
docusate sodium [Colace] 100 mg capsule
100 mg PO BID Qty: 20 0RF
No Action
albuterol sulfate 90 mcg/actuation Hfa Aerosol Inhaler
2 puff INHALATION Q6H PRN (Reason: wheezing)
Referrals:
Jace Rodriguez MD [Family Provider] - Follow up in 2-3 days
Raghu Lau DO [Non-Admitting Privileges] - Follow up in 1 week (spine)
Activity Restrictions/Additional Instructions:
YOUR BACK PAIN IS LIKELY MUSCULAR
YOU DO HAVE A BULGING DISC ON L4/L5 REGION OF YOUR BACK
TRY TYLENOL 3 TIMES ADAY FOR PAIN
AT NIGHT YOU CAN USE FLEXERIL MUSCLE RELAXER
FOR MORE SEVEREP AIN YOU CAN TAKE TRAMADOL 50 MG 2-3 TIMES A DAY
ICE OR HEAT ON YOUR BACK
FOLLOW UP WIHT SPINE DOCTOR
RETURN FOR: LEG WEAKNESS, NUMBNESS, INCONTIENCE, FEVER, INABILITY TO WALK OR ANY CONCENRS
YOU ALSO ARE ANEMIC AND SHOULD BE TAKING IRON.
COLACE WHILE YOU ARE ON IRON BCUASE OF CONSTIPATION
Interventions
Interventions:
*Risk Screen - Suicide Last Done: 06/08/24 09:42
*General Assessment Last Done: 06/08/24 10:55
*Neglect/Abuse Screening Last Done: 06/08/24 09:42
ED- Fall Risk Assessment Last Done: 06/08/24 10:55
*ED COVID-19 Vaccine History Last Done: 06/08/24 10:39
*Nursing Disposition Last Done: 06/08/24 13:00
ED-Musculoskeletal Assessment Last Done: 06/08/24 10:39
Discharge Date and Time
Discharge Date/Time: 06/08/24 13:00
Print Language: URUGUAYAN
[2024-06-08] MEDS: TYLENOL 1000 MG PO (10:33)
[2024-06-08] MEDS: TORADOL 15 MG IV (10:34)
[2024-06-08] MEDS: PEPCID 20 MG IV (10:34)
[2024-06-08 10:35] VITALS: BMI 22.6
[2024-06-08 10:38] VITALS: BP 130/92
[2024-06-08 10:51] LABS: Urine Albumin Negative (Neg - Trace); Urine Bilirubin Negative (Negative); Urine Character Clear (Clear); Urine Color Yellow; Urine Glucose Negative (Negative); Urine Ketone Negative (Negative); Urine Leukocyte Trace (Negative); Urine Nitrite Negative (Negative); Urine Occult Blood 4+ (Negative); Urine Specific Gravity 1.015 (<1.030); Urine Urobilinogen Negative (Neg - 1+); Urine pH 6.5 (5.0-9.0)
[2024-06-08 11:00] VITALS: BP 137/94
[2024-06-08 11:03] LABS: ALT (SGPT) 16 U/L (0-35); AST (SGOT) 30 U/L (14-36); Albumin 4.3 g/dl (3.5-5.0); Alkaline Phosphatase 118 U/L (38-126); Blood Urea Nitrogen 9 mg/dl (7-17); Carbon Dioxide 23 mmol/L (22-30); Chloride 108 mmol/L (98-107); Estimated Creatinine Clearance > 125 ml/min; Glucose 86 mg/dl (70-99); Potassium 4.6 mmol/L (3.5-5.1); Sodium 139 mmol/L (135-145); Total Bilirubin 0.7 mg/dl (0.2-1.3); eGFR > 60.00
[2024-06-08 11:05] LABS: HCG, Serum Qualitative Screen Negative
[2024-06-08 11:10] LABS: % Basophils 0.9 % (0-2); % Eosinophils 12.9 % (0-6); % Immature Granulocytes 0.2 % (0-0.5); % Lymphocytes 20.9 % (20.5-51.1); % Monocytes 7.9 % (1.7-9.3); % Neutrophils 57.2 % (42.2-75.2); Absolute Basophils 0.1 10^3/uL (0-0.2); Absolute Eosinophils 0.7 10^3/uL (0-0.7); Absolute Lymphocytes 1.2 10^3/uL (1.2-3.4); Absolute Monocytes 0.4 10^3/uL (0.1-0.6); Absolute Neutrophils 3.2 10^3/uL (1.4-6.5); Hematocrit 29.7 % (37.0-47.0); Hemoglobin 8.1 g/dL (12.0-16.0); Mean Corp Hgb Conc. 27.3 g/dL (33.0-37.0); Mean Corpuscular Hgb 16.3 pg (27.0-31.0); Mean Corpuscular Volume 59.8 fL (81.0-99.0); Nucleated Red Blood Cells % 0 %; Platelet Count 377 10^3/uL (130-400); Red Blood Cell Count 4.97 10^6/uL (4.20-5.40); Red Cell Dist. Width 19.5 % (11.5-14.5); White Blood Cell Count 5.6 10^3/uL (4.8-10.8)
[2024-06-08 11:22] LABS: Urine Amorphous Seen
[2024-06-08 11:23] LABS: Urine Red Blood Cell 21-25 /HPF (0-2); Urine White Cell 0-2 /HPF (0-5)
[2024-06-08 11:24] LABS: Urine Bacteria Moderate (Negative)
[2024-06-08 12:00] VITALS: BP 133/69
[2024-06-08 14:12] LABS: Anisocytosis 1+; Hypochromasia 1+; Microcytosis 2+; Normal RBC Morphology No; Ovalocytes 1+; Stomatocytes 1+; Target Cells 1+
== END 2024-06-08 13:00 | disposition home or self-care (01) ==
LOC: EMR 09:39
PROVIDERS: Physician Assistant; EMERGENCY PHYSICIAN Emergency Medicine; FAMILY PHYSICIAN Internal Medicine
DX: D64.9 Anemia, unspecified (principal); M54.50 Low back pain, unspecified; J44.89 Other specified chronic obstructive pulmonary disease; F41.9 Anxiety disorder, unspecified; F31.9 Bipolar disorder, unspecified; F10.20 Alcohol dependence, uncomplicated; F17.200 Nicotine dependence, unspecified, uncomplicated; I10 Essential (primary) hypertension; Z87.11 Personal history of peptic ulcer disease; Z98.84 Bariatric surgery status
CPT/HCPCS: 99284; 96374; 96375; 96376; 74176; 80053; 81003; 81015; 84703; 85025; 87086; 93005

== ENCOUNTER 2024-09-27 07:19 | Emergency (ER) | payer OTHER, SELFPAY ==
[2024-09-27 07:30] VITALS: BP 131/93
[2024-09-27 07:46] VITALS: BMI 21.6
[2024-09-27 07:48] VITALS: BP 130/90
[2024-09-27 08:16] LABS: Urine Albumin Negative (Neg - Trace); Urine Bilirubin Negative (Negative); Urine Character Clear (Clear); Urine Color Yellow; Urine Glucose Negative (Negative); Urine Ketone Negative (Negative); Urine Leukocyte 2+ (Negative); Urine Nitrite Negative (Negative); Urine Occult Blood Negative (Negative); Urine Urobilinogen 2+ (Neg - 1+); Urine pH 6.5 (5.0-9.0)
[2024-09-27 08:28] LABS: HCG, Serum Qualitative Screen Negative
[2024-09-27 08:31] LABS: ALT (SGPT) 19 U/L (0-35); AST (SGOT) 31 U/L (14-36); Albumin 4.1 g/dl (3.5-5.0); Alkaline Phosphatase 97 U/L (38-126); Blood Urea Nitrogen 9 mg/dl (7-17); Calcium 8.6 mg/dl (8.4-10.2); Carbon Dioxide 23 mmol/L (22-30); Chloride 106 mmol/L (98-107); Estimated Creatinine Clearance > 125 ml/min; Glucose 86 mg/dl (70-99); Lipase 45 U/L (23-300); Potassium 4.4 mmol/L (3.5-5.1); Sodium 138 mmol/L (135-145); Total Protein 6.9 g/dl (6.3-8.2); eGFR > 60.00
[2024-09-27] MEDS: ZOFRAN 4 MG IV (08:31)
[2024-09-27] MEDS: TORADOL 30 MG IV (08:31)
[2024-09-27 08:32] LABS: % Basophils 0.8 % (0-2); % Eosinophils 8.1 % (0-6); % Immature Granulocytes 0.4 % (0-0.5); % Monocytes 6.7 % (1.7-9.3); % Neutrophils 66.8 % (42.2-75.2); Absolute Basophils 0.1 10^3/uL (0-0.2); Absolute Eosinophils 0.7 10^3/uL (0-0.7); Absolute Lymphocytes 1.4 10^3/uL (1.2-3.4); Absolute Monocytes 0.6 10^3/uL (0.1-0.6); Absolute Neutrophils 5.5 10^3/uL (1.4-6.5); Hematocrit 29.5 % (37.0-47.0); Hemoglobin 7.9 g/dL (12.0-16.0); Mean Corp Hgb Conc. 26.3 g/dL (33.0-37.0); Mean Corpuscular Hgb 15.5 pg (27.0-31.0); Mean Corpuscular Volume 58.7 fL (81.0-99.0); Nucleated Red Blood Cells % 0 %; Platelet Count 320 10^3/uL (130-400); Red Blood Cell Count 5.11 10^6/uL (4.20-5.40); Red Cell Dist. Width 20.5 % (11.5-14.5); White Blood Cell Count 8.3 10^3/uL (4.8-10.8)
[2024-09-27 08:41] VITALS: BP 123/93
--- NOTE | 2024-09-27 08:44 | ED.GENMED ---
History of Present Illness
General
Chief Complaint: Abdominal Symptoms
Source: patient
Time Seen by Provider: 09/27/24 08:09
History of Present Illness
History of Present Illness:
39-year-old female with past medical history of asthma/COPD, previous gastric ulcer status post gastric bypass surgery, previous alcohol use (sober x 10 months) presenting to the ER for evaluation of left-sided lower abdominal pain that began on
Friday acutely around 2 AM, waxed and waned throughout the day and had improved by nighttime, woke patient up from sleep again last night around 3 AM and persisted into the morning prompting her to come to the ER. Patient notes associated mild
nausea but no other symptoms. Denies any history of similar. Denies any urinary symptoms, bowel changes, back or flank pain, vaginal bleeding or discharge, chest pain/shortness of breath or any other concerns. Patient did take a Tylenol for pain
on Friday with minimal relief. She also states she used a heating pad this morning which gave her slight relief.
Past History
Past History
ED Past Medical History: Asthma, COPD, Psychiatric (Anxiety, bipolar, depression), Other (Peptic ulcer) and Other (Anemia)
ED Past Surgical History: Other (Gastric bypass)
Social History
Tobacco: Smoker
Alcohol: Former
Drug: None
Personal: Single
Living: with family
Review of Systems
Review of Systems
All Other Systems: ROS reviewed and negative except as documented in HPI and ROS
Phy Exam
Physical Exam
Physical Exam:
GENERAL: Alert , in no apparent distress, appears older than stated age
EYE: clear conjunctiva b/l
HEAD: NCAT
ENT: o/p clr, mmm.
CARDIAC: Regular rate and rhythm .
LUNGS: Clear breath sounds bilaterally, no acute respiratory distress, no wheezes/rales/rhonchi
ABDOMEN: Soft, epigastric/suprapubic/left lower quadrant tenderness, no r/g, no cvat
NEUROLOGICAL: Alert and oriented
SKIN: Warm and dry, skin intact.
MUSCULOSKELETAL: No edema, well perfused.
PSYCH: Normal and appropriate interaction.
Scores
Heart Failure Risk
Heart Failure Risk Score: Not Applicable
Heart Score for Chest Pain Patients
STEMI patient?: Not applicable
Withdrawal Assessment of Alcohol
Withdrawal Assessment Completed?: Not applicable
Course
Orders/Labs/Results
Orders:
Orders
09/27/24 07:45
Test Result ONCE
09/27/24 07:54
Complete Blood Count/With Diff Urgent
Comprehensive Metabolic Panel Urgent
HCG, Serum Qualitative Screen Urgent
Comment: Notify provider if positive test present
Lipase Urgent
Urinalysis Reflex To Culture Urgent
Date Specimen was Collected: 09/27/24
Time Specimen was Collected: 07:49
Urine Microscopic Reflex Cult Urgent
Urine Culture Urgent
SANDRA Source: U
Specimen Description:
Date Specimen was Collected: 09/27/24
Time Specimen was Collected: 07:49
09/27/24 08:23
CT Abd/pelvis W Iv Cont Urgent
Comment:
Reason For Exam: generalized abd pain
Ketorolac [Toradol] 30 mg IV NOW STA
Ondansetron Injectable [Zofran] 4 mg IV NOW STA
Abnormal Lab Results
09/27/24
07:54
Hgb 7.9 L g/dL
(12.0-16.0)
Hct 29.5 L %
(37.0-47.0)
MCV 58.7 L fL
(81.0-99.0)
MCH 15.5 L pg
(27.0-31.0)
MCHC 26.3 L g/dL
(33.0-37.0)
RDW 20.5 H %
(11.5-14.5)
Lymphocytes % 17.0 L %
(20.5-51.1)
Eosinophils % 8.1 H %
(0-6)
Urine Urobilinogen 2+ A
(Neg - 1+)
Leukocyte Esterase Rfl 2+ A
(Negative)
Urine WBC (Reflex) 21-25 A /HPF
(0-5)
Urine Bacteria (Reflex) Many A
(Negative)
09/27/24 07:54
09/27/24 07:54
Vital Signs
Initial and Last Documented VS:
Initial Vital Signs
Temp Pulse Resp BP Pulse Ox
98.2 F 77 16 131/93 98
09/27/24 07:30 09/27/24 07:30 09/27/24 07:30 09/27/24 07:30 09/27/24 07:30
Last Documented Vital Signs
Temp Pulse Resp BP Pulse Ox
98.2 F 65 14 135/92 100
09/27/24 07:30 09/27/24 10:15 09/27/24 10:15 09/27/24 10:00 09/27/24 10:15
MDM/Problems Addressed
Differential Diagnosis Includes:
Colitis, diverticulitis, renal/ureteral colic, urinary tract infection, pancreatitis
MDM/Problems Addressed:
39-year-old female presenting to the ER for evaluation of 2 days of left-sided abdominal pain with mild nausea. No other symptoms. Patient notes history of gastric bypass surgery, no upper abdominal pain, no vomiting or bowel changes show concern
for obstruction is minimal. Patient did have a CT scan done here in May which did not show any acute pathologies. There was a bulging disc noted at L4-L5. Patient quite tender within the periumbilical and suprapubic region, less so within
the left lower quadrant but did have tenderness in this area as well. Will recheck CT scan given patient's past medical history and previous surgical history. Toradol and Zofran ordered for symptomatic relief.
Chronic conditions affecting care: Previous abdomnial surgery and Psychiatric illness (Previous alcohol abuse, chronic anemia)
*Radiology
Radiology exam reviewed: radiology read reviewed
*Pulse Oximetry
Patient hypoxic: no
*Critical Care Note
Total Time (30-74mins, 75-104mins- exclusive of procedures): Not Applicable
Data Reviewed
Review of Other/Old Records Reveals: Labs, Records and Radiology Studies
Patient Management
Escalation/DeEscalation of care consider admission/obs:
Patient CT scan shows possible acute on chronic gastritis, other incidental findings noted and discussed with patient. She was provided with a printout of CT report. Patient notes that she is not on any medications currently for gastritis. 1
month supply of Protonix prescription sent to pharmacy. Encourage patient follow-up with primary care provider and will likely need continued GI follow-up. Due to the urinary findings patient was also given a prescription for Macrobid.
ED Attending Note
-
Portions of this chart may have been created with voice recognition software.� Occasional wrong word or��sound alike� substitutions may have occurred due to the inherent limitations of voice recognition software.
Discharge Plan
Departure
Patient Disposition: Home (Routine Discharge)
Date of Disposition: 09/27/24
Time of Disposition: 10:11
Patient with high blood pressure during this ER visit?: No
Discharge Problem:
Abdominal pain, UTI (urinary tract infection), Gastritis
Instructions: Abdominal Pain
Prescriptions:
New
pantoprazole [Protonix] 40 mg tablet,delayed release (DR/EC)
40 mg PO DAILY Qty: 30 0RF
nitrofurantoin monohyd/m-cryst [Macrobid] 100 mg capsule
100 mg PO Q12H 7 Days Qty: 14 0RF
No Action
albuterol sulfate 90 mcg/actuation Hfa Aerosol Inhaler
2 puff INHALATION Q6H PRN (Reason: wheezing)
cyclobenzaprine 5 mg tablet
5 mg PO HS PRN (Reason: muscle spasm) Qty: 10 0RF
tramadol 50 mg tablet
50 mg PO Q8H PRN (Reason: Pain) Qty: 10 0RF
ferrous sulfate 325 mg (65 mg iron) tablet
325 mg PO DAILY Qty: 30 0RF
docusate sodium [Colace] 100 mg capsule
100 mg PO BID Qty: 20 0RF
Referrals:
UNKNOWN - PT DOES,NOT KNOW [Family Provider] -
Stand Alone Forms: Return to Work
Interventions
Interventions:
*Risk Screen - Suicide Last Done: 09/27/24 07:30
*General Assessment Last Done: 09/27/24 07:30
*Neglect/Abuse Screening Last Done: 09/27/24 07:32
ED- Fall Risk Assessment Last Done: 09/27/24 07:47
*ED COVID-19 Vaccine History Last Done: 09/27/24 07:47
*Nursing Disposition Last Done: 09/27/24 10:40
HV-Ttzefo-Kbgnjmubvd Assessment Last Done: 09/27/24 07:47
Discharge Date and Time
Discharge Date/Time: 09/27/24 10:40
Print Language: MOROCCAN
[2024-09-27 09:00] VITALS: BP 127/92
[2024-09-27 09:00] LABS: Anisocytosis 1+; Normal RBC Morphology No
[2024-09-27 09:01] LABS: Hypochromasia 3+; Polychromasia 2+
[2024-09-27 09:02] LABS: Acanthocytes FEW; Ovalocytes FEW
[2024-09-27 09:04] LABS: Urine Squamous Cell >30 /LPF (Few)
[2024-09-27 09:05] LABS: Urine Amorphous Seen; Urine Urothelial Cell 26-30 /LPF (FEW)
[2024-09-27 09:07] LABS: Urine Bacteria Many (Negative); Urine Red Blood Cell 0-2 /HPF (0-2); Urine White Cell 21-25 /HPF (0-5)
[2024-09-27 10:00] VITALS: BP 135/92
== END 2024-09-27 10:40 | disposition home or self-care (01) ==
LOC: EMR 07:19
PROVIDERS: Emergency Medicine; EMERGENCY PHYSICIAN Emergency Medicine
DX: N39.0 Urinary tract infection, site not specified (principal); K29.70 Gastritis, unspecified, without bleeding; J44.89 Other specified chronic obstructive pulmonary disease; M51.369 Other intervertebral disc degeneration, lumbar region without mention of lumbar back pain or lower extremity pain; Z87.11 Personal history of peptic ulcer disease; Z98.84 Bariatric surgery status; F17.200 Nicotine dependence, unspecified, uncomplicated
CPT/HCPCS: 96374; 96375; 99284; 74177; 80053; 81003; 81015; 83690; 84703; 85025; 87086; Q9967

== ENCOUNTER 2025-02-01 11:05 | Emergency (ER) | payer OTHER, SELFPAY ==
[2025-02-01 11:28] VITALS: BP 156/99
--- NOTE | 2025-02-01 13:38 | ED.GENMED ---
History of Present Illness
General
Chief Complaint: Back Pain
Source: patient
Exam Limitations: none
Time Seen by Provider: 02/01/25 13:20
Nursing documentation reviewed up to this point in time: agreed with
History of Present Illness
History of Present Illness:
39-year-old female with history of chronic back pain followed by her PCP, had her first visit to physical therapy last week and has another visit scheduled in 2 days presents for worsening back pain since this a.m. 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
[employer] yesterday and worked an 8-hour shift and then she had to stay for meetings and training for the next 5 hours sitting in a very hard uncomfortable chair and she will this morning with worsening back pain. The pain is in her left lower back,
radiates down her buttock to her thigh and down her left leg.
She has tried IcyHot, heat pad but has a medication for this pain.
Patient states earlier this year had a CAT scan here showing a 'bulging disc.'
She denies saddle area numbness, denies weakness in her legs, denies loss of bowel or bladder control.
She has an appointment with her PCP in [address] abdomen pelvis from 09/27/2024 reviewed and she does have grade 1 anterolisthesis of L5 on S1 secondary to bilateral L5 pars interarticularis spondylosis. Copy of this CAT scan was given to patient
Past History
Past History
ED Past Medical History: Asthma, COPD, Psychiatric (Anxiety, bipolar, depression), Other (Peptic ulcer) and Other (Anemia, chronic back pain, neuropathy in hands and feet, to gabapentin.)
ED Past Surgical History: None and Other (Gastric bypass)
Social History
Tobacco: Former smoker
Alcohol: None
Drug: None
Personal: Single
Living: with family
Employment: Employed ([employer])
Review of Systems
Review of Systems
Allergies reviewed?: Yes
All Other Systems: ROS reviewed and negative except as documented in HPI and ROS
Constitutional: Denies fever or chills
Musculoskeletal: Reports back pain (Left lower back pain)
Skin: Reports no symptoms
Neurological: Denies weakness or numbness
Phy Exam
Physical Exam
Physical Exam:
GENERAL: No acute distress. A&Ox3.
CONSTITUTIONAL: Afebrile.
EYES: clear, conjunctivae normal
ENMT: moist mucus membranes
RESPIRATORY: Regular respirations, nonlabored, lungs clear.
CARDIOVASCULAR: Regular rate and rhythm, no murmurs, no rubs.
GI: Soft, nontender, normal BS
MUSCULOSKELETAL: No spinal bony tenderness. Tender to palpate over left SI joint area. Pain elicited with left straight leg raise. Pain elicited with left knee flexed and leg abducted and adducted. Moves with ease. Well perfused.
SKIN: Warm, dry, pink
PSYCH: Normal mood and affect. Well kept, interactive and appropriate
NEUROLOGIC: Awake, alert and oriented. No focal neurological deficits
Course
Vital Signs
Initial and Last Documented VS:
Initial Vital Signs
Temp Pulse Resp BP Pulse Ox
98.4 F 73 18 156/99 97
02/01/25 11:28 02/01/25 11:28 02/01/25 11:28 02/01/25 11:28 02/01/25 11:28
Last Documented Vital Signs
Temp Pulse Resp BP Pulse Ox
98.4 F 78 18 148/76 98
02/01/25 11:28 02/01/25 14:00 02/01/25 14:00 02/01/25 14:00 02/01/25 14:00
MDM/Problems Addressed
Differential Diagnosis Includes:
low back strain, sciatica, cauda equina
MDM/Problems Addressed:
39-year-old female with history of chronic back pain followed by her PCP, had her first visit to physical therapy last week and has another visit scheduled in 2 days presents for worsening back pain since this a.m. 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 The pain is in her left lower back,
radiates down her buttock to her thigh and down her left leg.
She has tried IcyHot, heat pad but has a medication for this pain.
Patient states earlier this year had a CAT scan here showing a 'bulging disc.'
She denies saddle area numbness, denies weakness in her legs, denies loss of bowel or bladder control.
She has an appointment with her PCP in 2 days
Afebrile, no infectious symptoms.
No cauda equina
CT abdomen pelvis from 09/27/2024 reviewed and she does have grade 1 anterolisthesis of L5 on S1 secondary to bilateral L5 pars interarticularis spondylosis. Copy of this CAT scan was given to patient
Patient out of bed and ambulating well, no neurological deficits.
Rx for Flexeril and steroid sent to her pharmacy
Pt ambulated out with normal gait at discharge
*Critical Care Note
Total Time (30-74mins, 75-104mins- exclusive of procedures): Not Applicable
ED Attending Note
-
Portions of this chart may have been created with voice recognition software.� Occasional wrong word or��sound alike� substitutions may have occurred due to the inherent limitations of voice recognition software.
Discharge Plan
Departure
Patient Disposition: Home (Routine Discharge)
Date of Disposition: 02/01/25
Time of Disposition: 13:43
Patient with high blood pressure during this ER visit?: No
Condition: Good
Discharge Problem:
Low back pain with left-sided sciatica
Instructions: Low Back Pain (DC), Sciatica (DC)
Prescriptions:
New
prednisone 10 mg Tablet
See Rx Instructions .ROUTE .COMPLEX Qty: 30 0RF
Rx Instructions:
Take By Mouth:
40 mg daily x3 days, 30 mg daily x3 days,
20 mg daily x3 days, 10 mg daily x3 days.
cyclobenzaprine 10 mg tablet
10 mg PO TID PRN (Reason: Back pain/spasms) Qty: 15 0RF
No Action
albuterol sulfate 90 mcg/actuation Hfa Aerosol Inhaler
2 puff INHALATION Q6H PRN (Reason: wheezing)
cyclobenzaprine 5 mg tablet
5 mg PO HS PRN (Reason: muscle spasm) Qty: 10 0RF
tramadol 50 mg tablet
50 mg PO Q8H PRN (Reason: Pain) Qty: 10 0RF
ferrous sulfate 325 mg (65 mg iron) tablet
325 mg PO DAILY Qty: 30 0RF
docusate sodium [Colace] 100 mg capsule
100 mg PO BID Qty: 20 0RF
pantoprazole [Protonix] 40 mg tablet,delayed release (DR/EC)
40 mg PO DAILY Qty: 30 0RF
nitrofurantoin monohyd/m-cryst [Macrobid] 100 mg capsule
100 mg PO Q12H 7 Days Qty: 14 0RF
Referrals:
Jace Rodriguez MD [Family Provider] - Keep scheduled appt
Stand Alone Forms: Return to Work
Activity Restrictions/Additional Instructions:
As we discussed, I sent a prescription to your pharmacy for a prednisone taper and also for Flexeril muscle relaxant Flexeril can make you sleepy and slow your reflexes so do not drive or operate any machinery within 8 hours of taking it.
Keep your appointment with your doctor in 2 days.
Interventions
Interventions:
*Risk Screen - Suicide Last Done: 02/01/25 11:28
*General Assessment Last Done: 02/01/25 11:28
*Neglect/Abuse Screening Last Done: 02/01/25 11:28
*ED- Fall Risk Assessment Last Done: 02/01/25 13:40
*ED COVID-19 Vaccine History Last Done: 02/01/25 13:40
*Nursing Disposition Last Done: 02/01/25 14:00
ED-Musculoskeletal Assessment Last Done: 02/01/25 13:35
Discharge Date and Time
Discharge Date/Time: 02/01/25 14:00
Print Language: TURKISH
[2025-02-01 14:00] VITALS: BP 148/76
== END 2025-02-01 14:00 | disposition home or self-care (01) ==
LOC: EMR 11:05
PROVIDERS: EMERGENCY PHYSICIAN Student in an Organized Health Care Education/Training Program; FAMILY PHYSICIAN Internal Medicine
DX: M54.42 Lumbago with sciatica, left side (principal); Z87.891 Personal history of nicotine dependence
CPT/HCPCS: 99283